=== PATIENT | male | born 1940 | race Caucasian/White ===

== ENCOUNTER 2021-07-02 20:23 | Inpatient (IN) | payer MEDICARE, BC ==
[~2021-07-02] VITALS: Ht 165.1 cm; Wt 84.8 kg
--- NOTE | 2021-07-02 20:31 | NUR ---
PT RHONDARA 76 FROM HOME FOR C/O MIDSTERNAL, NON-RADIATING CP 9/10 ASA 162MG AND 1 SPRAY OF NITRO GIVEN FOOD RUNNER W/ RELIEF. PT ALERT AND ORIENTED X3. STATES "PAIN IS A 2/10". WITH SPONTANEOUS NON LABORED BREATHING. ON MONITORS V/S STABLE WILL CONTINUE TO MONITOR.
--- NOTE | 2021-07-02 20:49 | NUR ---
SUPERVISOR LATHING AT BEDSIDE.
[2021-07-02 20:59] LABS: BASOPHILS # (AUTO) 0.2 K/uL (0.0-0.2); BASOPHILS % (AUTO) 3.3 % (0.0-2.0); EOSINOPHILS % (AUTO) 1.9 % (0.0-6.0); HEMATOCRIT 36 % (39-51); HEMOGLOBIN 11.8 g/dL (13.5-17.5); LYMPHOCYTES # (AUTO) 1.1 K/uL (0.8-4.8); LYMPHOCYTES % (AUTO) 15.5 % (20.0-44.0); MEAN CORPUSCULAR HGB CONC 33 g/dl (31.0-36.0); MEAN CORPUSCULAR VOLUME 93 fL (80-96); MONOCYTES # (AUTO) 0.4 K/uL (0.1-1.30); NEUTROPHILS # (AUTO) 5.1 K/uL (1.8-8.9); NEUTROPHILS % (AUTO) 73.3 % (43.0-81.0); PLATELET COUNT (AUTO) 188 K/uL (150-450); RED BLOOD CELL COUNT(AUTO) 3.87 MIL/uL (4.5-6.0)
--- NOTE | 2021-07-02 20:59 | NUR ---
TISH ([facility]) - [phone]
[2021-07-02] MEDS ORDERED: NITROGLYCERIN PACKET 1 GM PACKET TOP ONE (21:00)
[2021-07-02] MEDS ORDERED: NITROGLYCERIN PACKET 1 GM PACKET ONE (21:05)
[2021-07-02 21:13] LABS: D-DIMER 1.2 mg/L(FEU (0.17-0.50)
[2021-07-02 21:40] LABS: CALCIUM, SERUM 8.8 mg/dL (8.5-10.1); CREATININE 1.1 mg/dL (0.6-1.3); POTASSIUM 4.1 mmol/L (3.5-5.1)
--- NOTE | 2021-07-02 21:40 | NUR ---
covid swab collected and sent to lab.
[2021-07-02 21:43] LABS: ALBUMIN 3.6 g/dL (3.4-5.0); BILIRUBIN,TOTAL 0.4 mg/dL (0.2-1.0); TOTAL PROTEIN, SERUM 6.8 g/dL (6.4-8.2)
[2021-07-02] MEDS ORDERED: IOHEXOL-350 100 ML VIAL IV ONE (21:56)
[2021-07-02] MEDS ORDERED: IV NS 0.9% 500 ML IV ONE (21:56)
[2021-07-02] MEDS ORDERED: CT SWABBABLE VALVE TRANS SET 1 EA INFUS.SET MC ONE (21:56)
[2021-07-02] MEDS ORDERED: MAG HYDROX/AL HYDROX/SIMETH 30 ML UDC PO PRN (22:00)
[2021-07-02] MEDS ORDERED: ACETAMINOPHEN 325 MG TABLET PO PRN (22:00)
[2021-07-02] MEDS ORDERED: Z GUARD REMEDY 2 OZ OINT TP PRN (22:00)
[2021-07-02] MEDS ORDERED: ZOLPIDEM TARTRATE 5 MG TABLET PO PRN (22:00)
[2021-07-02] MEDS ORDERED: ONDANSETRON HCL/PF 4 MG/2 ML VIAL IVP PRN (22:00)
[2021-07-02] MEDS ORDERED: MAGNESIUM HYDROXIDE 30 ML UDC PO PRN (22:00)
--- NOTE | 2021-07-02 22:08 | NUR ---
pt going to ct.
[2021-07-02] MEDS ORDERED: ASPIRIN 81 MG TAB.CHEW ONE (22:14)
--- NOTE | 2021-07-02 22:21 | NUR ---
PT BACK FROM CT
[2021-07-02] MEDS ORDERED: ASPIRIN 81 MG TAB.CHEW PO ONE (22:30)
--- NOTE | 2021-07-02 23:29 | NUR ---
TELE BED: 988-
--- NOTE | 2021-07-02 23:38 | NUR ---
REPORT GIVEN TO BISHNU HUERTA.
[2021-07-03] VITALS (23 sets, daily range): BP systolic 110–178; BP diastolic 59–99
[2021-07-03] MEDS ORDERED: ENOXAPARIN SODIUM 40 MG/0.4 ML DISP.SYRIN SQ SCH (00:12)
--- NOTE | 2021-07-03 00:23 | NUR ---
transferred pt to 328-2 per acls
[2021-07-03 06:11] LABS: BASOPHILS % (AUTO) 0.5 % (0.0-2.0); EOSINOPHILS % (AUTO) 1.8 % (0.0-6.0); HEMATOCRIT 33 % (39-51); HEMOGLOBIN 11.5 g/dL (13.5-17.5); LYMPHOCYTES # (AUTO) 1.6 K/uL (0.8-4.8); LYMPHOCYTES % (AUTO) 26.4 % (20.0-44.0); MEAN CORPUSCULAR HGB CONC 34 g/dl (31.0-36.0); MEAN CORPUSCULAR VOLUME 92 fL (80-96); MONOCYTES # (AUTO) 0.7 K/uL (0.1-1.30); MONOCYTES % (AUTO) 11.4 % (2.0-12.0); NEUTROPHILS # (AUTO) 3.7 K/uL (1.8-8.9); NEUTROPHILS % (AUTO) 59.9 % (43.0-81.0); PLATELET COUNT (AUTO) 174 K/uL (150-450); RED BLOOD CELL COUNT(AUTO) 3.64 MIL/uL (4.5-6.0); WHITE BLOOD COUNT (AUTO) 6.2 K/uL (4.3-11.0)
--- NOTE | 2021-07-03 06:30 | NUR ---
chest pain: Patient called nurse to room statng he has chest pain "Really Bad" face gimincing and he's holding his chest and rubbing. skin warm and dry facial reddness blood pressure 178/83 HR56 Resp 18 Sats 99 % RA... Placed himm on 02 3 liters n/c on the monitor showing SBrady called rapid response EKG done showing SINUS RUIZ 52 Nitro 0.4 mg gven sub ling at 0645 no effect Nitro 0.4 mg gven 2nd time at 0650 "little better" Called MD Pat tucker and made her aware stated tell MD Daniels when he come in. Nitro third one given and Morphine 2 mg given at 0700 and effective for relief of the pain B/P coming down by 0720 syst was 148. patient less tense at this time relaxed. report given to STEVE
[2021-07-03] MEDS ORDERED: NITROGLYCERIN 0.4 MG/TAB BOTTLE ONE (06:40)
[2021-07-03 06:42] LABS: CALCIUM, SERUM 8.7 mg/dL (8.5-10.1); CREATININE 0.9 mg/dL (0.6-1.3); MAGNESIUM 2.2 mg/dL (1.8-2.4); PHOSPHORUS 3.9 mg/dL (2.5-4.9)
[2021-07-03 06:48] LABS: THYROID STIMULATING HORMONE 1.757 uIU/mL (0.358-3.74)
[2021-07-03] MEDS ORDERED: MORPHINE SULFATE INJ 2 MG/ML DISP.SYRIN IV STA (06:54)
[2021-07-03] MEDS: PANTOPRAZOLE 40 MG TABLET.DR PO SCH (07:30)
--- NOTE | 2021-07-03 07:37 | NUR ---
TECHNOLOGY INFUSION SPECIALIST NOTES RECEIVED PT IN BED AWAKE, A/O X4. ABLE TO MAKE NEEDS KNOWN. VERBALIZED THAT HIS CHEST PAIN IS MUCH BETTER NOW. ON SUPPLEMENTAL 02 VIA N/C AT 4LPM. TOLERATING WELL WITH NO SOB NOTED. PT ON EXTERNAL PROGRAM OR PROJECT ADMINISTRATOR WITH CURRENT READING OF SB WITH IST DEGREE HB, HR ON THE 50'S. IV ACCESS ON LAC G#18 INTACT AND PATENT. SAFETY MEASURES IN PLACE: BED IN LOWEST LOCKED POSITION WITH S/R UP X2, CALL LIGHT W/IN EASY REACH OF PT. WILL CONTINUE TO MONITOR PT ACCORDINGLY.
[2021-07-03] MEDS: hydrALAZINE HCL 50 MG TABLET PO SCH ×3 (08:45→16:36)
[2021-07-03] MEDS: ASPIRIN 81 MG TAB.CHEW PO SCH (08:46)
[2021-07-03] MEDS ORDERED: *INSULIN REGULAR(HUMULIN R)HUM 100 UNIT/ML VIAL SQ PRN (10:00)
[2021-07-03] MEDS ORDERED: DEXTROSE 50%-WATER 50 ML DISP.SYRIN IV PRN (10:00)
[2021-07-03] MEDS ORDERED: INSULIN REGULAR, HUMAN 100 UNIT/ML 3 ML VIAL SQ PRN (10:00)
--- NOTE | 2021-07-03 10:48 | NUR ---
RN NOTES PT SEEN BY DR COAST THIS MORNING WITH ORDER TO DO CARDIAC CATHETERIZATION. PROCEDURE WAS EXPLAINED TO PT AND VERBALIZED UNDERSTANDING. CONSENTS SIGNED AND FILED IN HIS CHART.
--- NOTE | 2021-07-03 11:15 | NUR ---
RN NOTES PT'S DAUGHTER CHRIS FROM [employer] CALLED X2 AND AGREED TO PT'S CARDIAC CATHETERIZATION AFTER SPEAKING TO PT'S PRIMARY DOCTOR.
--- NOTE | 2021-07-03 11:22 | NUR ---
RN NOTES PT PICKED-UP VIA HIS BED BY BISHNU HYLTON FOR CARDIAC CATHETERIZATION.
[2021-07-03] MEDS ORDERED: MIDAZOLAM HCL 2 MG/2ML VIAL ONE (11:49)
[2021-07-03] MEDS ORDERED: FENTANYL PF 100MCG/2ML AMPUL ONE (11:49)
[2021-07-03] MEDS ORDERED: IODIXANOL 150 ML IV ONE (11:49)
[2021-07-03] MEDS ORDERED: NITROGLYCERIN IN 5 % DEXTROSE 250 ML IV ONE (11:50)
[2021-07-03] MEDS ORDERED: LIDOCAINE HCL/MPF 1% 30 ML VIAL IJ ONE (11:50)
[2021-07-03] MEDS: BLOOD SUGAR DIAGNOSTIC 1 EACH STRIP VI SCH ×3 (12:00→21:30)
[2021-07-03] MEDS ORDERED: NICARDIPINE HCL 25 MG/10 ML VIAL IV ONE (12:32)
[2021-07-03] MEDS ORDERED: HEPARIN SODIUM, PORCINE 5000 UNITS/1 ML VIAL ONE (12:34)
[2021-07-03] MEDS ORDERED: HEPARIN SODIUM, PORCINE 1,000 UNIT/ML VIAL ONE (12:34)
[2021-07-03] MEDS ORDERED: IODIXANOL 320MG/ML 50 ML IV ONE (12:35)
[2021-07-03] MEDS ORDERED: TICAGRELOR 90 MG TABLET PO ONE (12:37)
--- NOTE | 2021-07-03 13:10 | NUR ---
RECEIVED FROM [facility] VIA HOSPITAL BED, PT IS AAO X3 ON O2 VIA NC 3L SPO2 98% NO SIGN OF RESPIRATORY DISTRESS HOOKED TO BEDSIDE MONITOR WITH READING SINUS RUIZ 40-50'S PER PRELOAD SUPERVISOR NURSE IT IS HIS BASE LINE, HAVE LEFT AC #18 IV PATENT AND FLUSHED, V/S CHECKED AND RECORDED, DRESSING ON RIGHT ARM NOTED CLEAN DRY AND INTACT NO BRUSIES AROUND THE DRESSING NOTED, PT ALSO HAVE DRESSING ON RIGHT FEMORAL AREA DRESSING DRY AND INTACT NO BRUISES AROUND THE DRESSING NOTED, NO ACTIVE BLEEDING, PT ON COMPLETE BEDREST, HOB ON FLAT FOR AT LEAST 2 HOURS, EXPLAINED TO PT AND VERBALIZED UNDERSTANDING, BED ON LOWEST POSITION AND LOCKED SIDE RAILS UP X2 CALL LIGHT WITHIN REACH WILL CONT TO MONITOR
--- NOTE | 2021-07-03 13:13 | NUR ---
RN NOTES REPORT GIVEN VIA TELEPHONE TO ENVIRONMENTAL SERVICES SUPERVISOR CAROLINE.
[2021-07-03] MEDS: ENOXAPARIN SODIUM 80 MG/0.8 ML DISP.SYRIN SQ SCH (14:08)
[2021-07-03] MEDS ORDERED: VALS320T16 PO (16:44)
[2021-07-03] MEDS ORDERED: SIMV-49 PO (16:44)
[2021-07-03] MEDS ORDERED: TAMS-12 PO (16:44)
--- NOTE | 2021-07-03 17:14 | NUR ---
REPORTED TO DR. SANTANA THAT PT IS COMPLAINING OF MILD CHEST PAIN/ CHEST DISCOMFORT, WITH ORDER OF MORPHINE 2 MG IV Q4H PRN AND STAT EKG NOTED AND CARRIED OUT
[2021-07-03] MEDS ORDERED: MORPHINE SULFATE INJ 2 MG/ML DISP.SYRIN IV PRN (17:30)
--- NOTE | 2021-07-03 18:48 | NUR ---
PT AWAKE ON BED, STILL ON O2 3L VIA NC SPO2 98% NO SIGN OF RESPIRATORY DISTRESS, VERY MINIMAL CHEST PAIN COMPLAINTS, REFUSED TO TAKE THE PAIN MEDICATION FORM NOW, HE SAID HE WILL TELL IF HE REALLY NEED IT, MINIMAL BLEEDING ON FEMORAL DRESSING NOTED, ALL NEEDS ATTENDED, PT ATE 100% OF HIS DINNER, BED ON LOWEST POSITION AND LOCKED SIDE RAILS UP X2 CALL LIGHT WITHIN REACH WILL ENDORSED TO AM SHIFT NURSE
--- NOTE | 2021-07-03 19:50 | NUR ---
UPPER TIER NOTES RECEIVED PTS IN BED A/O X4 ON O2 VIA NC 3L SPO2 99% NO SIGN OF RESPIRATORY DISTRESS HOOKED TO BEDSIDE MONITOR WITH READING SINUS RUIZ 50'S WITH LEFT AC #18 IV PATENT AND FLUSHED, V/S CHECKED AND RECORDED STABLE AFEBRILE, DRESSING ON THE RIGHT ARM CLEAN AND DRY NO BLEEDING NOTED PT ALSO HAVE DRESSING ON RIGHT FEMORAL AREA DRESSING DRY AND INTACT NO BRUISES AROUND THE DRESSING NOTED, NO ACTIVE BLEEDING, PT ON COMPLETE BEDREST, HOB ON FLAT FOR AT LEAST 2 HOURS, EXPLAINED TO PT AND VERBALIZED UNDERSTANDING, BED ON LOWEST POSITION AND LOCKED SIDE RAILS UP X2 CALL LIGHT WITHIN REACH WILL CONT TO MONITOR
--- NOTE | 2021-07-03 20:00 | NUR ---
FIRE SAFETY INSPECTOR NOTES BLOOD SUGAR FOR 10PM IS 144MG/DL 2 UNITS OF REGULAR INSULIN GIVEN PER SLIDING SCALE.,WILL BLOOD SUGAR AGAIN IN AM
--- NOTE | 2021-07-03 22:10 | NUR ---
ORDER ENTRY TECHNICIAN NOTES SPOKE TO FAYE FROM LAB REPORTING TROPONIN CRITICAL RESULT (3.626) RELAYED TO dR GARZA MADE AWARE OF CRITICAL RESULT ,INFORMED HIM THAT PTS IS S/P PTCA AND STENTING TODAY AT 07/03/21 ,PTS ALREADY ON LOVENOX Q12HRS .NO C/O OF PAIN ,NO CHEST PAIN NO SOB NO DISTRESS NOTED PTS IS ALERT ORIENTED X 4 , WITH NNO AT THIS TIME WILL CONTINUE TO MONITOR PTS.
[2021-07-04] VITALS (16 sets, daily range): BP systolic 69–155; BP diastolic 60–98
[2021-07-04] MEDS: ENOXAPARIN SODIUM 80 MG/0.8 ML DISP.SYRIN SQ SCH (01:26)
[2021-07-04 04:15] LABS: BASOPHILS % (AUTO) 0.4 % (0.0-2.0); HEMATOCRIT 38 % (39-51); LYMPHOCYTES # (AUTO) 1.3 K/uL (0.8-4.8); LYMPHOCYTES % (AUTO) 16.2 % (20.0-44.0); MEAN CORPUSCULAR HGB CONC 34 g/dl (31.0-36.0); MEAN CORPUSCULAR VOLUME 92 fL (80-96); MONOCYTES # (AUTO) 0.8 K/uL (0.1-1.30); MONOCYTES % (AUTO) 10.3 % (2.0-12.0); NEUTROPHILS # (AUTO) 5.5 K/uL (1.8-8.9); NEUTROPHILS % (AUTO) 71.1 % (43.0-81.0); PLATELET COUNT (AUTO) 190 K/uL (150-450); RED BLOOD CELL COUNT(AUTO) 4.16 MIL/uL (4.5-6.0); WHITE BLOOD COUNT (AUTO) 7.7 K/uL (4.3-11.0)
[2021-07-04 04:37] LABS: ALBUMIN 3.4 g/dL (3.4-5.0); BILIRUBIN,TOTAL 0.6 mg/dL (0.2-1.0); CALCIUM, SERUM 8.9 mg/dL (8.5-10.1); PHOSPHORUS 4.1 mg/dL (2.5-4.9); POTASSIUM 4.2 mmol/L (3.5-5.1); TOTAL PROTEIN, SERUM 6.9 g/dL (6.4-8.2)
--- NOTE | 2021-07-04 04:40 | NUR ---
[facility] nurse notes spoke to dr polo troponin 2.402 trending down with nno at this time.
--- NOTE | 2021-07-04 06:49 | NUR ---
[facility] staff nurse notes Pts remains in bed a/o x4 v/s stable afebrile remains on 3 liters of 02 via nc , no sob no distress no pain noted will endorse to rn day shift for continuity of care.
[2021-07-04] MEDS: BLOOD SUGAR DIAGNOSTIC 1 EACH STRIP VI SCH (07:57)
[2021-07-04] MEDS: ASPIRIN 81 MG TAB.CHEW PO SCH (08:32)
[2021-07-04] MEDS: PANTOPRAZOLE 40 MG TABLET.DR PO SCH (08:47)
[2021-07-04] MEDS: hydrALAZINE HCL 50 MG TABLET PO SCH (08:47)
[2021-07-04] MEDS ORDERED: TICAGRELOR 90 MG TABLET PO SCH (09:00)
--- NOTE | 2021-07-04 12:13 | NUR ---
RN NOTE 0715: Received patient awake, A/Ox4. No CP. VSS. Right radial bruise noted, with right fem bruise noted, no bleeding, with dressing CDI. 1000: S/E by Dre. Nails, awaitng prescription for DC meds. 1150: Discharged patient in good condition, VSS. Understood prescribed meds and DC instruction to follow up with Cardio in 10days to 2 weeks. Accompanied by friend Bonnie via private car. Discontinued PIV, no bleeding, applied pressure dressing.
== END 2021-07-04 11:55 | disposition home health service (06) | DRG 247 ==
LOC: ER 20:25 → TELE 23:57 → ICU 07-03 13:21
PROVIDERS: ADMIT Student in an Organized Health Care Education/Training Program; ATTEND Internal Medicine
PROC: 027034Z Dilation of Coronary Artery, One Artery with Drug-eluting Intraluminal Device, Percutaneous Approach (ICD-10-PCS; principal; 2021-07-03)
PROC: 4A023N7 Measurement of Cardiac Sampling and Pressure, Left Heart, Percutaneous Approach (ICD-10-PCS; 2021-07-03)
PROC: B211YZZ Fluoroscopy of Multiple Coronary Arteries using Other Contrast (ICD-10-PCS; 2021-07-03)
PROC: B215YZZ Fluoroscopy of Left Heart using Other Contrast (ICD-10-PCS; 2021-07-03)
PROC: B41FYZZ Fluoroscopy of Right Lower Extremity Arteries using Other Contrast (ICD-10-PCS; 2021-07-03)
PROC: B31HYZZ Fluoroscopy of Right Upper Extremity Arteries using Other Contrast (ICD-10-PCS; 2021-07-03)
DX: I21.4 Non-ST elevation (NSTEMI) myocardial infarction (principal); E86.0 Dehydration; D64.9 Anemia, unspecified; E78.5 Hyperlipidemia, unspecified; I10 Essential (primary) hypertension; K21.9 Gastro-esophageal reflux disease without esophagitis; Z20.822 Contact with and (suspected) exposure to COVID-19; Z85.51 Personal history of malignant neoplasm of bladder; Z87.891 Personal history of nicotine dependence; E11.9 Type 2 diabetes mellitus without complications; I25.10 Atherosclerotic heart disease of native coronary artery without angina pectoris; K57.90 Diverticulosis of intestine, part unspecified, without perforation or abscess without bleeding
CPT/HCPCS: 36415; 71045-TC; 80048-TC; 80053-TC; 80061-TC; 82962-TC; 83735-TC; 83880; 84100-TC; 84443-TC; 84484-TC; 85025-TC; 85378-TC; 85730-TC; 87081-TC; 92980; 93307-TC; C1769; C1887; C1894; C9803; G0378; G0500; J1644; J1650; J1815; J2250; J2270; J3010; J3490; J7040; Q9967